=== PATIENT | female | born 2000 | race Two or more races ===

== ENCOUNTER 2023-12-08 11:18 | Emergency (ER) | payer OTHER ==
[~2023-12-08] VITALS: Ht 162.6 cm; Wt 81.6 kg
[2023-12-08] MEDS ORDERED: 0.9 % SODIUM CHLORIDE 500 ML IV STA (12:06)
[2023-12-08] MEDS ORDERED: FAMOtidine 10 MG/ML (4ML VIAL) IV STA (12:07)
[2023-12-08] MEDS ORDERED: ONDANSETRON HCL 2 MG/ML VIAL IV STA (12:07)
[2023-12-08] MEDS ORDERED: FAMOTIDINE/PF 20 MG/2 ML VIAL ONE (12:21)
[2023-12-08] MEDS ORDERED: ONDANSETRON HCL 2 MG/ML VIAL ONE (12:21)
[2023-12-08 12:32] LABS: HEMATOCRIT 39.3 % (36.0-45.00); HEMOGLOBIN 13.8 g/dL (12.0-15.00); MEAN CORPUSCULAR HGB CONC 35.1 g/dl (32.0-36.0); PLATELET COUNT 335 K/uL (150-450); RED BLOOD COUNT 4.18 M/uL (4.00-6.00)
[2023-12-08 12:57] LABS: CALCIUM 9.2 mg/dL (8.5-10.1); CREATININE SERUM 0.79 mg/dL (0.55-1.02); GFR 90.19; POTASSIUM 3.75 mEq/L (3.5-5.1)
== END 2023-12-08 16:17 | disposition home or self-care (01) ==
LOC: ER 11:20
PROVIDERS: General Practice
DX: K52.89 Other specified noninfective gastroenteritis and colitis (principal)